=== PATIENT | female | born 1950 | race Caucasian/White ===

== ENCOUNTER 2016-06-26 08:28 | Day surgery (SDC) | payer OTHER ==
[2016-06-25 13:57] VITALS: BMI 33.2
[2016-06-26] MEDS ORDERED: PROPOFOL 20 ML ONE ×2 (09:55)
[2016-06-26 10:16] VITALS: TEMP 98
[2016-06-26 11:05] VITALS: BP 133/76; PULSE 82
--- NOTE | 2016-07-03 11:18 | PATH ---
Surgical Pathology Report Patient Name: JUSTICE PEDERSON [facility]. Rec. #: [id number] /Age/Gender: 1950 (Age: 66) / F Account: [id number] Location: [facility]-ENDOSCOPY Taken: 06/26/2016 Received: 06/26/2016 Reported: 06/27/2016 Physicians: Henrry Torrez M.D. Specimen(s) Received A: BX ANTRAL GASTRITIS B: BX GE JUNCTION Clinical History Gastroesophageal acid reflux, r/o Causey's Hiatal hernia with GERD, possible Causey's, antral gastritis, duodenitis Final Diagnosis A. STOMACH, ANTRAL GASTRITIS, BIOPSY: GASTRIC ANTRAL AND OXYNTIC MUCOSA WITH MODERATE CHRONIC GASTRITIS. IMMUNOSTAIN FOR H. PYLORI IS NEGATIVE FOR ORGANISMS. B. GE JUNCTION, ASYMMETRIC Z-LINE, BIOPSY: SQUAMOCOLUMNAR JUNCTIONAL MUCOSA WITH FOCAL ACTIVE AND CHRONIC INFLAMMATION AND REFLUX TYPE CHANGES. NO DEFINITIVE INTESTINAL METAPLASIA (CAUSEY'S ESOPHAGUS) IDENTIFIED. Electronically Signed Brian Agudelo M.D. Gross Description A. Received in formalin, labeled "biopsy antral gastritis" are 4 chaparro, irregular portions of soft tissue ranging from 0.2-0.9 cm in greatest dimension. The specimens are submitted in toto in one cassette. B. Received in formalin, labeled "biopsy GE junction asymmetric Z-line" are 5 chaparro, irregular portions of soft tissue ranging from 0.1-0.4 cm in greatest dimension. The specimens are submitted in toto in one cassette. 06/26/2016 saudi06/26/2016
== END 2016-06-26 11:23 | disposition home or self-care (01) ==
LOC: JASU-ENDO 08:28
PROVIDERS: ATTEND Internal Medicine Gastroenterology
PROC: 0DB68ZX Excision of Stomach, Via Natural or Artificial Opening Endoscopic, Diagnostic (ICD-10-PCS; 2016-06-26)
PROC: 0DB28ZX Excision of Middle Esophagus, Via Natural or Artificial Opening Endoscopic, Diagnostic (ICD-10-PCS; principal; 2016-06-26 09:45)
DX: K21.9 Gastro-esophageal reflux disease without esophagitis (principal); R13.10 Dysphagia, unspecified; K44.9 Diaphragmatic hernia without obstruction or gangrene; K29.80 Duodenitis without bleeding
CPT/HCPCS: 88305-TC; 88342-TC

== ENCOUNTER 2017-05-24 21:37 | Emergency (ER) | payer OTHER ==
[2017-05-24 21:43] VITALS: BP 148/98; PULSE 86; TEMP 97.8; BMI 29.6
--- NOTE | 2017-05-24 22:44 | PDOC ---
History of Present Illness - General History Source: Patient Exam Limitations: No Limitations - History of Present Illness Initial Comments: 05/24/17 23:01 The patient is a 67 year old female, with a significant past medical history of GERD, hiatal hernia, DM, asthma, IBS, and hyperlipidemia, who presents to the emergency department with, two weeks of abdominal cramping and diarrhea. As per patient, her symptoms onset 2 weeks ago as diffuse cramping and diarrhea switching between a tight sensation to a dull achy. This evening, the patient reports her pain to be localized to the epigastric area. She describes her epigastric pain as a tight, squeezing to her epigastric area. She describes her diarrhea as loose, watery, floating stool. She reports that she has started taking Trulicity for her diabetes approximately a month ago. She denies recent fevers, chills, headache or dizziness. She denies recent nausea, vomit, or constipation. She denies recent dysuria, frequency, urgency or hematuria. She denies recent chest pain or shortness of breath. Allergies: Penicillins Social history: Nonsmoker. Denies EtOH use and recreational drug use. Primary Care Physician: Dr. Mc Samaniego <Gina Pearson - Last Filed: 05/24/17 23:01> - General History Source: Patient Exam Limitations: No Limitations <Veronica Maguire - Last Filed: 05/25/17 02:07> - General Chief Complaint: Pain Stated Complaint: ABDOMINAL PAIN Time Seen by Provider: 05/24/17 22:43 Past History <Gina Pearson - Last Filed: 05/24/17 23:01> - Past Medical History Anemia: No Asthma: Yes Cancer: No Cardiac Disorders: No CVA: No COPD: No CHF: No Dementia: No Diabetes: Yes (NIDDM) GI Disorders: Yes (GERD,HIATAL HERNIA,H.PYLORI GASTRITIS W/ ANTRAL NODULE, DIVERTICULOSIS) Disorders: Yes (NEPHROLITHIASIS) HTN: No Hypercholesterolemia: Yes (HYPERLIPIDEMIA) Liver Disease: No Seizures: No Thyroid Disease: No - Surgical History Abdominal Surgery: No Appendectomy: No Cardiac Surgery: No Cholecystectomy: Yes (LAPAROSCOPIC) Lung Surgery: No Neurologic Surgery: Yes (SPINAL FUSION) Orthopedic Surgery: No - Suicide/Smoking/Psychosocial Hx Smoking History: Never smoked Have you smoked in the past 12 months: No If you are a former smoker, when did you quit?: 1974 Information on smoking cessation initiated: No Hx Alcohol Use: No Drug/Substance Use Hx: No Substance Use Type: None Hx Substance Use Treatment: No <Veronica Maguire - Last Filed: 05/25/17 02:07> - Past Medical History Allergies/Adverse Reactions: Allergies Allergy/AdvReac Type Severity Reaction Status Date / Time Penicillins Allergy Severe Rash Verified 05/24/17 21:43 Home Medications: Ambulatory Orders Glipizide [Glipizide Xl] 2.5 mg PO DAILY 06/01/12 Rosuvastatin Calcium [Crestor] 5 mg PO HS 06/01/12 Albuterol Sulfate [Proair Respiclick] 90 mcg IH TID 11/16/15 Fluticasone Prop 0.05% Nasal [Flonase -] 1 - 2 spray NS BID 11/16/15 Budesonide [Pulmicort 0.25 mg Nebulizer -] 1 neb NEB DAILY PRN 06/26/16 Cholecalciferol (Vitamin D3) [Vitamin D3] 2,000 unit PO DAILY 06/26/16 Pantoprazole Sodium 40 mg PO HS #90 tablet. 06/26/16 Sucralfate [Carafate] 1 gm PO QID #360 tab 06/26/16 Dulaglutide [Trulicity] 0.75 mg SQ Q7D 05/24/17 Hyoscyamine Odt [Levsin Odt -] 0.125 mg PO BID PRN #10 tab.rapdis 05/25/17 Review of Systems - Review of Systems Able to Perform ROS?: Yes Comments:: 05/24/17 23:01 CONSTITUTIONAL: No fever, no chills, no fatigue EYES: No visual changes ENT: No ear pain, no sore throat CARDIOVASCULAR: No chest pain, no palpitations RESPIRATORY: No cough, no SOB (+)GI: Abdominal pain. Diarrhea. no nausea, no vomiting, no constipation GENITOURINARY: No dysuria, no frequency, no hematuria MUSCULOSKELETAL: No back pain, no joint pain, no myalgias SKIN: No rash NEURO: No headache All Other Systems: Reviewed and Negative <Gina Pearson - Last Filed: 05/24/17 23:01> *Physical Exam - Vital Signs Last Vital Signs Temp Pulse Resp BP Pulse Ox 97.8 F 86 16 148/98 100 05/24/17 21:40 05/24/17 21:40 05/24/17 21:40 05/24/17 21:40 05/24/17 21:40 - Physical Exam Comments: 05/24/17 23:02 GENERAL: The patient is in no acute distress. HEAD: Normal with no signs of trauma. EYES: PERRLA, EOMI, sclera anicteric, conjunctiva clear. ENT: Ears normal, nares patent, oropharynx clear without exudates. Moist mucous membranes. NECK: Normal range of motion, supple without lymphadenopathy, JVD, or masses. LUNGS: Breath sounds equal, clear to auscultation bilaterally. No wheezes, and no crackles. HEART:Regular rate and rhythm, normal S1 and S2 without murmur, rub or gallop. ABDOMEN: Soft, nontender, normoactive bowel sounds. No guarding, no rebound. No masses palpable. EXTREMITIES: Normal range of motion, no edema. No clubbing or cyanosis. No erythema, or tenderness. NEUROLOGICAL: Cranial nerves II through XII grossly intact. Normal speech. No focal neurological deficits. MUSCULOSKELETAL: Back non-tender to palpation, no CVA tenderness SKIN: Warm, Dry, normal turgor, no rashes or lesions noted. <Gina Pearson - Last Filed: 05/24/17 23:01> - Vital Signs Last Vital Signs Temp Pulse Resp BP Pulse Ox 97.8 F 86 16 148/98 100 05/24/17 21:40 05/24/17 21:40 05/24/17 21:40 05/24/17 21:40 05/24/17 21:40 <Veronica Maguire - Last Filed: 05/25/17 02:07> ED Treatment Course - LABORATORY CBC & Chemistry Diagram: 05/24/17 22:45 05/24/17 22:45 - Medications Given in the ED: ED Medications Discontinued Medications Generic Name Dose Route Start Last Admin Trade Name Freq PRN Reason Stop Dose Admin Morphine Sulfate 4 mg 05/24/17 22:46 05/24/17 22:59 Morphine Injection - IVPUSH 05/24/17 22:47 4 mg ONCE ONE Administration <Gina Pearson - Last Filed: 05/24/17 23:01> - LABORATORY CBC & Chemistry Diagram: 05/24/17 22:45 05/24/17 22:45 <Veronica Maguire - Last Filed: 05/25/17 02:07> Medical Decision Making - Medical Decision Making 05/24/17 23:14 Miss Singleton is a 67-year-old female with a history of insulin-dependent diabetes, recently started on Trulicity (approximately 4 weeks ago), history of hypertension, history of IBS Patient states that over the past 2 weeks she has noted intermittent abdominal discomfort. Over the past week she's noticed in addition to the intermittent abdominal discomfort, very loose stools. She's noted multiple episodes of watery diarrhea. No prior history of abdominal surgery no fever, chills. Most recent colonoscopy 1 year ago-incomplete however demonstrated diverticulosis, status post barium enema as well. Past medical history: As above Past surgical history: Orthopedic procedures Medications: Please see MAR On examination: Heart is regular Lungs are clear Abdomen is nontender to palpation, no voluntary guarding, no rebound Differential diagnosis is broad and includes: Colitis, diverticulitis, euglycemic DKA, SBO Will do: Labs CT abdomen and pelvis IV fluids Pain meds as needed Laboratory Tests 05/24/17 05/24/17 05/24/17 22:45 22:45 22:45 WBC 12.3 H Hgb 14.4 Hct 42.1 Plt Count 271 Sodium 141 Potassium 4.2 Chloride 108 H Carbon Dioxide 29 Anion Gap 4 L BUN 18 Creatinine 0.8 Random Glucose 228 H Creatine Kinase 103 Troponin I < 0.02 Acetone, Qual Negative L 05/25/17 00:03 Pt refused IV contrast Will scan without IV contrast 05/25/17 00:04 05/25/17 01:46 CT of the abdomen and pelvis: 3 mm left mid ureteral stone, hydronephrosis Mesenteric adenitis Diverticulosis no Diverticulitis Will discharge to home Will give hyocyomine Pt can take Immodium for diarrhea No recent abx use, no concern for C diff or antibiotic associated diarrhea Pt actually has no flank pain, has previously had right sided Kidney stone This does not feel like a kidney stone Pt has an appointment in [address] Torrez Clinical Impression: abdominal pain, initial presentation Diarrhea, initial presentation <Veronica Maguire - Last Filed: 05/25/17 02:07> *DC/Admit/Observation/Transfer - Attestations Scribe Attestion: 05/24/17 23:02 Documentation prepared by Gina Pearson, acting as medical director for Veronica Maguire MD. <Gina Pearson - Last Filed: 05/24/17 23:01> - Discharge Dispostion Admit: No <Veronica Maguire - Last Filed: 05/25/17 02:07> Diagnosis at time of Disposition: Abdominal pain Qualifiers: Abdominal location: unspecified location Qualified Code(s): R10.9 - Unspecified abdominal pain Diarrhea Qualifiers: Diarrhea type: unspecified type Qualified Code(s): R19.7 - Diarrhea, unspecified - Discharge Dispostion Disposition: HOME Condition at time of disposition: Stable - Referrals Referrals: Mc Samaniego MD [Primary Care Provider] - Henrry Torrez MD [Staff Physician] - - Patient Instructions Printed Discharge Instructions: Loperamide, Diarrhea, Diarrhea (Alternative Therapy) Additional Instructions: Ms Singleton Thank you for coming in to the ER today Please take medications as prescribed Please monitor for fevers, worsening abdominal pain your CT scan will be re read tomorrow If there are any new findings, we will contact you Please be sure to follow up with your primary care physician within 1 week and you family educator (as already scheduled) - Post Discharge Activity
[2017-05-24] MEDS ORDERED: morphine CARPU-JECT 4 MG/1 ML DISP.SYRIN IVPUSH ONE (22:46)
[2017-05-24] MEDS ORDERED: SODIUM CHLORIDE 1,000 ML IV STA (22:50)
[2017-05-24] MEDS ORDERED: morphine SULFATE 4 MG/ML VIAL ONE (22:55)
[2017-05-24 23:01] LABS: BASO % 0.4 % (0-2.0); EOS % 2.5 % (0-4.5); HEMATOCRIT 42.1 % (32.4-45.2); HEMOGLOBIN 14.4 GM/dL (10.7-15.3); LYMPH % 19.3 % (8-40); MCH 30.1 pg (25.7-33.7); MCHC 34.3 g/dl (32.0-36.0); MEAN CELL VOLUME 87.7 fl (80-96); MEAN PLT VOLUME 8.8 fl (7.5-11.1); MONO % 4.4 % (3.8-10.2); NEUT % 73.4 % (42.8-82.8); PLATELET COUNT 271 K/MM3 (134-434); RDW 13.8 % (11.6-15.6); WHITE BLOOD COUNT 12.3 K/mm3 (4.0-10.0)
[2017-05-24 23:18] LABS: ALBUMIN 3.8 g/dl (3.4-5.0); AMYLASE 30 U/L (25-115); ANION GAP 4 (8-16); BILIRUBIN,TOTAL 0.5 mg/dL (0.2-1.0); BLOOD UREA NITROGEN 18 mg/dL (7-18); CALCIUM 8.6 mg/dL (8.5-10.1); CHLORIDE 108 mmol/L (98-107); CO2 29 mmol/L (21-32); CREATININE 0.8 mg/dL (0.55-1.02); GLUCOSE,RANDOM 228 mg/dL (74-106); LIPASE 196 U/L (73-393); POTASSIUM 4.2 mmol/L (3.5-5.1); SGOT/AST 14 U/L (15-37); SGPT/ALT 23 U/L (12-78); SODIUM 141 mmol/L (136-145); TOT PROT 7.1 g/dl (6.4-8.2)
[2017-05-24 23:21] LABS: ALK PHOS 91 U/L (45-117)
== END 2017-05-25 02:31 | disposition home or self-care (01) ==
LOC: JER 21:37
PROC: 3E0337Z Introduction of Electrolytic and Water Balance Substance into Peripheral Vein, Percutaneous Approach (ICD-10-PCS; principal; 2017-05-24)
PROC: 3E033NZ Introduction of Analgesics, Hypnotics, Sedatives into Peripheral Vein, Percutaneous Approach (ICD-10-PCS; 2017-05-24)
DX: R19.8 Other specified symptoms and signs involving the digestive system and abdomen (principal); R10.13 Epigastric pain; R19.7 Diarrhea, unspecified; K21.9 Gastro-esophageal reflux disease without esophagitis; J45.909 Unspecified asthma, uncomplicated; E78.5 Hyperlipidemia, unspecified; E11.9 Type 2 diabetes mellitus without complications; Z79.4 Long term (current) use of insulin; Z87.19 Personal history of other diseases of the digestive system; Z88.0 Allergy status to penicillin
CPT/HCPCS: 36415; 74176-TC; 80053; 82009; 82150; 82550; 83690; 84484; 85025; 96361; 96374; 99283-25; J7030

== ENCOUNTER 2020-02-16 04:24 | Day surgery (SDC) | payer OTHER ==
[2020-02-15 11:36] VITALS: BMI 30.5
[2020-02-16] MEDS ORDERED: MIDAZOLAM HCL 2 MG/2 ML SINGLE DOSE VIAL ONE (07:45)
[2020-02-16] MEDS ORDERED: PROPOFOL 20 ML ONE (07:45)
[2020-02-16] MEDS ORDERED: FAMOTIDINE 20 MG/50 ML IVPB 20 MG/50 ML MG IVPB ONE (07:46)
[2020-02-16 09:08] VITALS: TEMP 97.8
[2020-02-16 09:41] VITALS: BP 133/57; PULSE 75
== END 2020-02-16 10:16 | disposition home or self-care (01) ==
LOC: JASU-ENDO 04:24
PROVIDERS: ATTEND Internal Medicine Gastroenterology
PROC: 0DBL8ZX Excision of Transverse Colon, Via Natural or Artificial Opening Endoscopic, Diagnostic (ICD-10-PCS; 2020-02-16)
PROC: 0DBK8ZX Excision of Ascending Colon, Via Natural or Artificial Opening Endoscopic, Diagnostic (ICD-10-PCS; principal; 2020-02-16 08:00)
DX: Z12.11 Encounter for screening for malignant neoplasm of colon (principal); Z86.010 Personal history of colon polyps; K57.30 Diverticulosis of large intestine without perforation or abscess without bleeding; D12.3 Benign neoplasm of transverse colon; D12.8 Benign neoplasm of rectum

== ENCOUNTER 2020-04-04 23:03 | Emergency (ER) | payer OTHER ==
[2020-04-04 23:19] VITALS: BMI 29.2
[2020-04-04] MEDS ORDERED: LACTATED RINGERS SOLUTION 1000 ML INFUS.BAG IV ONE (23:44)
[2020-04-04] MEDS ORDERED: ACETAMINOPHEN 325 MG TABLET (FP) PO ONE (23:45)
[2020-04-04] MEDS ORDERED: ACETAMINOPHEN 325 MG TABLET (FP) ONE (23:58)
[2020-04-05 00:28] LABS: BASO % 0.8 % (0-2.0); EOS % 1.1 % (0-4.5); HEMATOCRIT 43.6 % (32.4-45.2); HEMOGLOBIN 14.6 GM/dL (10.7-15.3); LYMPH % 19.2 % (8-40); MCH 29.2 pg (25.7-33.7); MCHC 33.4 g/dl (32.0-36.0); MEAN CELL VOLUME 87.5 fl (80-96); MONO % 6.7 % (3.8-10.2); NEUT % 72.2 % (42.8-82.8); PLATELET COUNT 283 K/MM3 (134-434); RBC 4.98 M/mm3 (3.60-5.2); RDW 13.6 % (11.6-15.6); WHITE BLOOD COUNT 9.5 K/mm3 (4.0-10.0)
[2020-04-05 01:10] LABS: CHLORIDE 107 mmol/L (98-107); POTASSIUM 4.4 mmol/L (3.5-5.1); SODIUM 142 mmol/L (136-145)
[2020-04-05 01:11] LABS: ANION GAP 9 MMOL/L (8-16); CALCIUM 9.5 mg/dL (8.5-10.1); CO2 25 mmol/L (21-32); GLUCOSE,RANDOM 348 mg/dL (74-106); LIPASE 149 U/L (73-393)
[2020-04-05 01:12] LABS: ALBUMIN 3.7 g/dl (3.4-5.0); BLOOD UREA NITROGEN 10.8 mg/dL (7-18)
[2020-04-05] MEDS ORDERED: LACTATED RINGERS SOLUTION 1,000 ML/1,000 ML INFUS.BAG IV STA (01:13)
[2020-04-05 01:14] LABS: CREATININE 0.8 mg/dL (0.55-1.3)
[2020-04-05 01:15] LABS: SGOT/AST 23 U/L (15-37); SGPT/ALT 41 U/L (13-61)
[2020-04-05 01:16] LABS: BILIRUBIN,TOTAL 0.5 mg/dL (0.2-1); TOT PROT 6.8 g/dl (6.4-8.2)
[2020-04-05 01:17] LABS: ALK PHOS 97 U/L (45-117)
[2020-04-05 02:53] LABS: URINE APPEARANCE CLOUDY; URINE BILIRUBIN NEGATIVE (NEGATIVE); URINE COLOR YELLOW; URINE GLUCOSE (UA) 2+ (NEGATIVE); URINE KETONE NEGATIVE (NEGATIVE); URINE LEUK ESTERASE NEGATIVE (NEGATIVE); URINE NITRITE NEGATIVE (NEGATIVE); URINE PROTEIN NEGATIVE (NEGATIVE); URINE UROBILINOGEN 0.2 mg/dL (0.2-1.0)
[2020-04-05 02:58] VITALS: BP 150/77; PULSE 85; TEMP 98.6
== END 2020-04-05 03:50 | disposition home or self-care (01) ==
LOC: JER 23:03
PROC: 3E0337Z Introduction of Electrolytic and Water Balance Substance into Peripheral Vein, Percutaneous Approach (ICD-10-PCS; principal; 2020-04-05)
DX: R55 Syncope and collapse (principal); R19.7 Diarrhea, unspecified; R10.84 Generalized abdominal pain
CPT/HCPCS: 36415; 70450-TC; 72125-TC; 80053; 81003; 82010; 82550; 82962; 83690; 84484; 85025; 87086; 93005; 93010; 99285-25

== ENCOUNTER 2022-07-05 04:20 | Day surgery (SDC) | payer OTHER ==
[2022-07-03 16:15] VITALS: BMI 29.2
[2022-07-05 08:25] VITALS: TEMP 98
[2022-07-05 08:49] VITALS: RESP 20
[2022-07-05 09:33] VITALS: BP 140/70; PULSE 70
== END 2022-07-05 09:33 | disposition home or self-care (01) ==
LOC: JASU-ENDO 04:20
PROVIDERS: ATTEND Internal Medicine Gastroenterology
PROC: 0DB78ZX Excision of Stomach, Pylorus, Via Natural or Artificial Opening Endoscopic, Diagnostic (ICD-10-PCS; 2022-07-05)
PROC: 0DB28ZX Excision of Middle Esophagus, Via Natural or Artificial Opening Endoscopic, Diagnostic (ICD-10-PCS; 2022-07-05)
PROC: 0DB48ZX Excision of Esophagogastric Junction, Via Natural or Artificial Opening Endoscopic, Diagnostic (ICD-10-PCS; 2022-07-05)
PROC: 0DB98ZX Excision of Duodenum, Via Natural or Artificial Opening Endoscopic, Diagnostic (ICD-10-PCS; principal; 2022-07-05 08:00)
DX: K21.00 Gastro-esophageal reflux disease with esophagitis, without bleeding (principal); K44.9 Diaphragmatic hernia without obstruction or gangrene; K26.9 Duodenal ulcer, unspecified as acute or chronic, without hemorrhage or perforation; K29.50 Unspecified chronic gastritis without bleeding
CPT/HCPCS: 88305-TC; 88342-TC